=== PATIENT | female | born 1995 | race Caucasian/White ===

== ENCOUNTER → 2016-06-08 | Outpatient (CLI) | payer MEDICAID ==
[~2016-06-08] MED LIST: ACYC400T PO; CEPH500C PO; IBUP-232 PO; OXYC1TAB63 PO; PREN1PAK2 PO; SENN1TAB PO
== END ==
LOC: CLAB 14:42
DX: O36.0130 Maternal care for anti-D [Rh] antibodies, third trimester, not applicable or unspecified (principal)
CPT/HCPCS: 36415; 86850; 86900; 86901; 90384; 96372; J2790

== ENCOUNTER 2016-08-25 18:51 | Emergency (ER) | payer MEDICAID ==
[~2016-08-25 18:51] MED LIST changes: -CEPH500C PO; -IBUP-232 PO; -OXYC1TAB63 PO; -SENN1TAB PO
--- NOTE | 2016-08-25 20:59 | PD ---
HPI Chief Complaint contractions Date Seen: Aug 25, 2016 Time Seen: 20:45 Travel History International Travel<30 Days: No Contact w/Intl Traveler<30Days: No Known Affected Area: No History of Present Illness HPI Pt is a 20 y/o with IUP at 40w1d who presents for evaluation of contractions. Pt reports contractions since 3 pm, currently feeling every 3 minutes, 4-5/10 on pain scale. reports some mucous discharge earlier today but none presently. denies LOF. +FM Para: 1 : 2 History Past Medical History Narrative Medical HSV Obstetric History Obstetric History 2013 FTSVD Past Surgical History Surgical History: No Previous Surgery Family History Family History: Negative Social History Alcohol Use: No Tobacco Use: No Substance Abuse: No Allergies-Medications (Allergen,Severity, Reaction): Coded Allergies: No Known Allergies (Unverified , 08/23/16) Home Meds Active Scripts Acyclovir 400 Mg [id number] Mg PO BID #60 TAB Ref 6 Prov:Latanya Mejia 07/15/16 W/O Vit A W/ Fe Carbo Pack (Citranatal Dha Pack)27-1 & 250 Mg Pack1 Ea PO DAILY #60 BLISTER Ref 11 30 day supply. Prov:Latanya Mejia 05/12/16 Review of Systems General / Constitutional: No: Fever, Weight Gain, Weight Loss, Chills, Other Eyes: No: Diploplia, Blurred Vision, Visual changes, Pain, Photophobia, Other HENT: No: Headaches, Vertigo, Dental Difficulties, Lightheadedness, Other Cardiovascular: No: Irregular Rhythm, Chest Pain or Discomfort, Palpitations, Tachycardia, Syncope, Varicosities, Edema, Cyanosis, Other Respiratory: No: Cough, Short of Breath, Wheezing, Other Gastrointestinal: No: Nausea, Vomiting, Diarrhea, Abdominal Pain, Hematemesis, Hematochezia, Constipation, Changes in Bowel Habits, Indigestion, Loss of Appetite, Other Skin: No Rash, No Itching, No Dryness, No Lumps, No Change in Pigmentation, No Change in Nails, No Alopecia, No Lesions, No Breast Lumps, No Breast Tenderness , No Breast Swelling, No Other Neurologic: No: Weakness, Dizziness, Syncope, Focal Abnormalities, Coordination Problem, Headache, Slurred Speech, Seizures, Other Psychiatric: No: Anxiety, Depression, Suicidal Ideations, Disorder of Thought, Mood Disorder, Substance Abuse, Homicidal Ideation, Other Physical Exam Narrative GENERAL: Well-nourished, well-developed patient. SKIN: Warm and dry. HEAD: Normocephalic and atraumatic. EYES: No scleral icterus. No injection or drainage. ENT: No nasal drainage noted. Mucous membranes pink. Airway patent. NECK: Supple, trachea midline. No JVD. CARDIOVASCULAR: Regular rate and rhythm without murmurs, gallops, or rubs. RESPIRATORY: Breath sounds equal bilaterally. No accessory muscle use. ABDOMEN/GI: Abdomen soft, non-tender, bowel sounds present, no rebound, no guarding Gravid GENITOURINARY: External Genitalia: intact and normal in appearance BUS glands: wnl Cervix: 2/70/-2 per RN exam Presentation: [vtx] Membranes: intact Uterine Contractions: q 2-4 FHT's: Category: [1] Baseline: 135 Reactive: yes Variability: mod Decels: no EXTREMITIES: No cyanosis or edema. BACK: Nontender without obvious deformity. No CVA tenderness. NEUROLOGICAL: Awake and alert. Motor and sensory grossly within normal limits. Five out of 5 muscle strength in all muscle groups. Normal speech. Data Data Vital Signs Reviewed: Yes (113/67, 75, 16, 98.4) Orders Vital Signs (Adult) .ON ADMISSION (08/25/16 20:46) ^ Labor Status (08/25/16 20:46) MDM Medical Record Reviewed: Yes Narrative Course / MDM 20 y/o at 40.1 wks, latent versus false labor will have patient ambulate and recheck cervix GBS neg Rh neg Patient Instructions: General Instructions, Early Labor Signs (ED), Having Your Baby: The Labor Process (GEN) Additional Instructions: RETURN FOR CONTRACTIONS, LOSS OF FLUID (WATER BREAKING), VAGINAL BLEEDING, OR DECREASED MOVEMENT DRINK 8-10 LARGE GLASSES OF WATER EVERY DAY KEEP SCHEDULED APPOINTMENT WITH YOUR PROVIDER Departure Forms: Tests/Procedures Singh Alcantar MD Aug 25, 2016 20:59
== END 2016-08-25 22:11 | disposition home or self-care (01) ==
LOC: HOBED 19:30
DX: O47.1 False labor at or after 37 completed weeks of gestation (principal); Z3A.40 40 weeks gestation of pregnancy
CPT/HCPCS: 59025

== ENCOUNTER 2016-08-28 09:55 | Inpatient (IN) | payer MEDICAID ==
[2016-08-28] VITALS (24 sets, daily range): BP systolic 89–148; BP diastolic 51–80; PULSE 57–104; RESP 18; TEMP 97.8–98.7; O2SAT 96–100
[2016-08-28] MEDS ORDERED: LACTATED RINGER'S 1000 ML INJ 1,000 ML IV PRN (10:23)
[2016-08-28] MEDS ORDERED: LACTATED RINGER'S 1000 ML INJ 1,000 ML IV SCH (10:23)
--- NOTE | 2016-08-28 10:29 | PD ---
History of Present Illness Date Seen: Aug 28, 2016 History of Present Illness 20 y/o WF c/o CTXs , no bleeding or SROM , FHR reactive + CTXs cx--6/100/0/vtx RADHA, seen with [facility] Med resident , see his note for detail, agree with his assessment and plan Imp-- labor Plan -admit for delivery Darrick Neville II, MD Aug 28, 2016 10:29
[2016-08-28] MEDS ORDERED: LIDOCAINE HCL 1% 50 ML VIAL I-DERMAL PRN (10:30)
[2016-08-28] MEDS ORDERED: LIDOCAINE HCL 1% 50 ML VIAL INFIL PRN (10:30)
[2016-08-28] MEDS ORDERED: MINERAL OIL 10 ML VIAL TOPICAL PRN (10:30)
[2016-08-28] MEDS ORDERED: OXYTOCIN 30 UNITS-500ML PREMIX 500 ML IV ONE (10:30)
[2016-08-28] MEDS ORDERED: CITRIC ACID-SODIUM CITRATE LIQ 30 ML UDC PO SCH (10:30)
[2016-08-28] MEDS ORDERED: SODIUM CHLORID 0.9% 500 ML INJ 500 ML IV PRN (10:30)
--- NOTE | 2016-08-28 10:39 | HHI.HP ---
History & Physical H&P Patient Name: Aan Phelan Unit Number: [id number] Date of : 1995 Patient Status: Registered Emergency Room Attending Doctor: Latanya Delvalle MD HPI HPI Chief Complaint Contractions Date Seen: Aug 28, 2016 Travel History International Travel<30 Days: No Contact w/Intl Traveler<30Days: No History of Present Illness HPI Ms. Phelan is a 20 yo patient of [facility] at an estimated 40 weeks 4 /7 days who presents with contractions. Patient reports regular contractions every couple minutes beginning at approximately 4 AM; prior to this patient reports a couple days of less painful and more sporadic contractions. Patient currently rates pain with contractions at 7/10 in severity. Patient denies overt vaginal bleeding or loss of vaginal fluid. Patient reports bloody show last week. Patient reports history of HSV; she denies this being primary outbreak. Patient states she was placed on Valtrex at 36 weeks for prophylaxis. Patient denies any vaginal sores/lesions suggestive of herpes. GBS negative. Patient denies complications and reports reassuring prior ultrasound. Not report shortness of breath, chest pain, nausea/vomiting, dysuria, leg swelling/asymmetry, fever/chills, or other symptoms at this time. Para: 1 : 2 History (Limited) History Past Medical History Medical History: Denies Significant Hx Obstetric History Obstetric History no reported complications First delivery 2.5 years ago Past Surgical History Surgical History: No Previous Surgery Family History Family History: Negative Social History Alcohol Use: No Tobacco Use: No Substance Abuse: No Allergies-Medications Allergies-Medications (Allergen,Severity, Reaction): Coded Allergies: No Known Allergies (Unverified , 08/23/16) Home Meds Active Scripts Acyclovir 400 Mg [id number] Mg PO BID #60 TAB Ref 6 Prov:Latanya Mejia 07/15/16 W/O Vit A W/ Fe Carbo Pack (Citranatal Dha Pack)27-1 & 250 Mg Pack1 Ea PO DAILY #60 BLISTER Ref 11 30 day supply. Prov:Latanya Mejia 05/12/16 ROS Review of Systems General / Constitutional: No: Fever, Chills HENT: No: Headaches Cardiovascular: No: Chest Pain or Discomfort Respiratory: No: Cough, Short of Breath Gastrointestinal: No: Nausea, Vomiting Genitourinary: No: Urgency, Frequency Physical Exam Physical Exam BP 118/83 HR 100 RR 18 Temp 98.1 Narrative GENERAL: Well-nourished, well-developed patient. SKIN: Warm and dry. HEAD: Normocephalic and atraumatic. EYES: No scleral icterus. No injection or drainage. ENT: No nasal drainage noted. Mucous membranes pink. Airway patent. NECK: NO thyromegaly or lymphadenopathy CARDIOVASCULAR: Regular rate and rhythm without murmurs RESPIRATORY:Normal rate, CTAB ABDOMEN/GI: Abdomen soft, non-tender, bowel sounds present. Gravid EXTREMITIES: No cyanosis or edema. BACK: Nontender without obvious deformity. No CVA tenderness. NEUROLOGICAL: Awake and alert. Motor and sensory function grossly within normal limits. GENITOURINARY: External Genitalia: intact and normal in appearance. No visible lesions Cervix: Dilatation: 6 Effacement: 100% Station: 0 Presentation: V Membranes: Intact Uterine Contractions: Y FHT's: Category: 1 Baseline: 150 Reactive: Y Variability: Mod Decels: None Data Data Data Vital Signs Reviewed: Yes Orders Ob (2e) Additional Admit Info (08/28/16 10:23) MDM MDM Medical Record Reviewed: Yes Narrative Course / MDM Ms. Phelan is a 20 yo patient of [facility] at an estimated 40 weeks 4 /7 days who presents with contractions Assessment: -Category 1 rhythm -Cervix 6/100%/-1 -PMH HSV (not primary)- -No lesions, received prophylactic Valtrex x4 weeks -GBS- -Rh - Plan: -Will admit for labor -Cont EFM -Will check blood typing, CBC, UA -Will start IVF -Epidural per patient request - Vinny Wiley MD R2 Aug 28, 2016 10:39
[2016-08-28] MEDS ORDERED: SODIUM CHLOR 0.9% 1000 ML INJ 1,000 ML IV PRN (10:43)
[2016-08-28] MEDS ORDERED: fentaNYL 2MCG-BUPIV 0.125% INJ 100 ML ONE (10:47)
[2016-08-28 11:03] LABS: AUTOMATED NEUTROPHIL # 11.8 TH/MM3 (1.8-7.7); BASOPHIL % 0.3 % (0.0-2.0); EOSINOPHIL % 0.1 % (0.0-4.0); HEMATOCRIT 38.9 % (35.0-46.0); HEMO FLAGS DIFF FINAL; LYMPHOCYTE # 1.9 TH/MM3 (1.0-4.8); MEAN CELL VOLUME 92.3 FL (80.0-100.0); MEAN CORPUSCULAR HEMOGLOBIN 31.1 PG (27.0-34.0); MEAN CORPUSCULAR HGB CONC 33.7 % (32.0-36.0); MONO % 4.4 % (0.0-8.0); NEUT % 82.2 % (16.0-70.0); PLATELET COUNT 168 TH/MM3 (150-450); RED BLOOD COUNT 4.21 MIL/MM3 (4.00-5.30); RED CELL DISTRIBUTION WIDTH 13.2 % (11.6-17.2); WHITE BLOOD COUNT 14.4 TH/MM3 (4.0-11.0)
[2016-08-28] MEDS ORDERED: ePHEDrine/NS 25 MG/5 ML SYR IV PRN (12:15)
[2016-08-28] MEDS ORDERED: NO SYSTEM NARCOTICS PRN (12:15)
[2016-08-28] MEDS ORDERED: fentaNYL 2MCG-BUPIV 0.125% 100 ML EPIDURAL SCH (12:15)
[2016-08-28] MEDS ORDERED: DO NOT ADMINISTER ANTICOAGULANTS PRN (12:15)
--- NOTE | 2016-08-28 13:09 | PD.OB.DELI ---
Delivery Date: Aug 28, 2016 Anesthesia: Epidural Episiotomy: None Vaginal Delivery: Normal, Spontaneous Presentation: Occiput anterior Nuchal Cord: x1 Delayed cord clamping (45 sec): No (Nuchal could not be reduced) : Female One Minute : 9 Five Minute : 9 Weight: 3225 Infant Care: Suctioned, Responded to stimulation Placenta: Spontaneous delivery, Intact Laceration: 2 deg (perineal ) Repair: Chromic running Additional Information 2 chronic sutures used to repair 2nd degree perineal and L vaginal laceration; hemostasis achieved Dr. Neville as supervisor printing and stamping Vinny Haile MD R2 Aug 28, 2016 13:09
[2016-08-28] MEDS ORDERED: ALUMINUM/MAGNESIUM/SIMETH 30 ML CUP PO PRN (13:15)
[2016-08-28] MEDS ORDERED: WITCH HAZEL 50%/GLYCERIN 12.5% 40 PAD JAR TOPICAL PRN (13:15)
[2016-08-28] MEDS ORDERED: ONDANSETRON ODT 4 MG TAB PO PRN (13:15)
[2016-08-28] MEDS ORDERED: BENZOCAINE 20% TOPICAL SPRAY 60 ML CAN TOPICAL PRN (13:15)
[2016-08-28] MEDS ORDERED: ZOLPIDEM TARTRATE 5 MG TAB PO PRN (13:15)
[2016-08-28] MEDS ORDERED: oxyCODONE/ACETAMINOPHEN 5 MG/325 MG TAB PO PRN (13:15)
[2016-08-28] MEDS ORDERED: SODIUM CHLORIDE 0.9% FLUSH 10 ML FLUSH IV FLUSH PRN (13:15)
--- NOTE | 2016-08-28 13:31 | PD.LABORPN ---
Subjective Subjective OB Attending note Supervised by FM resident Vag delivery over 2 deg perineal lac, tight nuchal cord cut on perineum., uncomplicated delivery after that, infant wt 3225 gm 9 /9 , cord blood obtained, placenta out spont intact , lac repaired in layers with 2-0 chromic no complication Objective Vital Signs Vital Signs Date Time Temp Pulse Resp B/P Pulse Ox O2 Delivery O2 Flow Rate FiO2 08/28/16 13:00 18 08/28/16 12:45 86 112/66 08/28/16 12:32 98.6 18 08/28/16 12:31 85 107/59 08/28/16 12:15 71 148/74 100 08/28/16 12:15 104 08/28/16 12:10 72 98 08/28/16 12:05 57 96 08/28/16 12:01 60 123/56 08/28/16 12:00 65 08/28/16 12:00 99 08/28/16 11:55 99 08/28/16 11:55 67 08/28/16 11:50 74 08/28/16 11:50 100 08/28/16 11:46 90 123/74 08/28/16 11:45 86 08/28/16 11:45 100 08/28/16 11:40 78 08/28/16 11:40 81 100/56 08/28/16 11:35 88 114/66 08/28/16 11:35 63 08/28/16 11:30 98 08/28/16 11:30 94 117/80 08/28/16 11:25 91 123/79 08/28/16 10:58 18 08/28/16 10:54 78 128/76 Objective Darrick Neville II, MD Aug 28, 2016 13:30
[2016-08-28] MEDS: IBUPROFEN 600 MG TAB PO PRN ×2 (15:18→21:43)
[2016-08-28] MEDS ORDERED: DIPHTH/TETANUS/ACEL PERTUSSIS (BOOSTER) 0.5 ML VIAL/PFS IM ONE (16:00)
[2016-08-28] MEDS ORDERED: MEASLES, MUMPS, RUBELLA VACCINE 0.5 ML VIAL SQ ONE (16:00)
[2016-08-28] MEDS: DOCUSATE SODIUM 50 MG/SENNA 8.6 MG TAB PO PRN (19:24)
[2016-08-28] MEDS: ACETAMINOPHEN 325 MG TAB PO PRN ×2 (19:26→23:29)
[2016-08-28] MEDS ORDERED: SODIUM CHLORIDE 0.9% FLUSH 10 ML FLUSH IV FLUSH SCH (21:00)
[2016-08-29] MEDS: IBUPROFEN 600 MG TAB PO PRN ×3 (03:58→18:19)
[2016-08-29] MEDS: ACETAMINOPHEN 325 MG TAB PO PRN ×2 (04:00→08:38)
[2016-08-29 07:30] VITALS: BP 125/69; PULSE 78; RESP 18; TEMP 97.5
--- NOTE | 2016-08-29 07:43 | HHI.OB ---
Subjective Post Day: 1 Remarks Ms. Phelan is a 20 yo who is PPD 1 from at 40 weeks 4/7 days. Patient reports that she is doing well overall this time. Patient states she is breast-feeding her infant well. Patient has been able to ambulate somewhat in room. Patient reports mild/decreasing vaginal bleeding. Patient reports significant lower abdominal pain but that it is controlled with pain medications. Patient reports dysuria. Patient does not report shortness of breath, chest pain, leg swelling, or fever/chills. No bowel movement yet reported. Objective Vitals/I&O Vital Signs Date Time Temp Pulse Resp B/P Pulse Ox O2 Delivery O2 Flow Rate FiO2 08/28/16 19:40 98.7 73 18 08/28/16 19:40 128/69 08/28/16 14:45 109/64 08/28/16 14:45 97.8 75 18 08/28/16 13:45 62 106/60 08/28/16 13:30 73 89/51 08/28/16 13:15 68 18 111/64 08/28/16 13:00 78 107/59 08/28/16 13:00 18 08/28/16 12:45 86 112/66 08/28/16 12:32 98.6 18 08/28/16 12:31 85 107/59 08/28/16 12:15 71 148/74 100 08/28/16 12:15 104 08/28/16 12:10 72 98 08/28/16 12:05 57 96 08/28/16 12:01 60 123/56 08/28/16 12:00 65 08/28/16 12:00 99 08/28/16 11:55 99 08/28/16 11:55 67 08/28/16 11:50 74 08/28/16 11:50 100 08/28/16 11:46 90 123/74 08/28/16 11:45 86 08/28/16 11:45 100 08/28/16 11:40 78 08/28/16 11:40 81 100/56 08/28/16 11:35 88 114/66 08/28/16 11:35 63 08/28/16 11:30 98 08/28/16 11:30 94 117/80 08/28/16 11:25 91 123/79 08/28/16 10:58 18 08/28/16 10:54 78 128/76 Objective Remarks GENERAL: Well-nourished, well-developed patient. CARDIOVASCULAR: Regular rate and rhythm without murmurs, gallops, or rubs. RESPIRATORY: Breath sounds equal bilaterally. No accessory muscle use. ABDOMEN/GI: Abdomen soft, non-tender. Fundus: Firm, mildly tender at umbilicus. GENITOURINARY: Light to moderate bleeding. EXTREMITIES: No cyanosis or edema, non-tender, without signs of DVT. Medications and IVs Current Medications Medications (Trade) Dose Ordered Sig/Mattie Route Start Time Stop Time Status Last Admin Miscellaneous Information No systemic narcotics to be given except... UNSCH PRN .XX 08/28/16 12:15 08/29/16 12:14 Miscellaneous Information DO NOT ADMINISTER ANY ANTICOAGUL... UNSCH PRN .XX 08/28/16 12:15 08/29/16 12:14 (fentaNYL 2MCG-BUPIV 0.125% INJ) 100 ml @ 0 mls/hr TITRATE EPIDURAL 08/28/16 12:15 (ePHEDrine/NS 25 MG/5 ML SYR) 10 mg UNSCH PRN IV 08/28/16 12:15 08/29/16 12:14 (NS Flush) 2 ml BID IV FLUSH 08/28/16 21:00 (NS Flush) 2 ml UNSCH PRN IV FLUSH 08/28/16 13:15 (Tylenol) 650 mg Q4H PRN PO 08/28/16 13:15 08/29/16 04:00 (Motrin) 600 mg Q6H PRN PO 08/28/16 13:15 08/29/16 03:58 (Percocet 5-325 Mg) 1 tab Q4H PRN PO 08/28/16 13:15 (Percocet 5-325 Mg) 2 tab Q4H PRN PO 08/28/16 13:15 (Americaine 20% Top Spr) 1 spray Q4H PRN TOPICAL 08/28/16 13:15 08/28/16 19:24 (Tucks Pads) 1 applic QID PRN TOPICAL 08/28/16 13:15 08/28/16 19:24 (Heather-Colace) 2 tab Q12H PRN PO 08/28/16 13:15 08/28/16 19:24 (Ambien) 5 mg HS PRN PO 08/28/16 13:15 (Mag-Al Plus Susp Liq) 15 ml Q8H PRN PO 08/28/16 13:15 (Zofran Odt) 4 mg Q6H PRN PO 08/28/16 13:15 Assessment/Plan Assessment and Plan who is PPD 1 from at 40 weeks 4/7 days Continue Motrin/Percocet for pain control Continue to encourage ambulation Continue to encourage breast feeding Dysuriaunclear whether secondary to vaginal delivery versus infectious etiology; will check UA -Will plan to encourage pelvic rest x6wks and confirm f/u prior to D/C in ~1 day Vinny Haile MD R2 Aug 29, 2016 07:43
[2016-08-29] MEDS: DOCUSATE SODIUM 50 MG/SENNA 8.6 MG TAB PO PRN ×2 (08:39→21:29)
[2016-08-29 12:04] LABS: BACTERIA, URINE OCC /hpf; BLOOD, URINE LARGE (NEG); COMMENT (UR) CULTURE INDICATED; CULTURE IF INDICATED CULTURE INDICATED; GLUCOSE,URINE NEG (NEG); KETONE, URINE NEG (NEG); MUCUS URINE FEW /lpf (OCC); NITRITE,URINE NEG (NEG); SQUAMOUS EPITHELIAL CELL URINE 5 /hpf (0-5); URINE COLOR LIGHT-RED (YELLW/STRAW)
[2016-08-29] MEDS: oxyCODONE/ACETAMINOPHEN 5 MG/325 MG TAB PO PRN ×3 (14:17→22:45)
[2016-08-29 22:00] VITALS: BP 128/69; PULSE 76; RESP 18; TEMP 98
[2016-08-30] MEDS: IBUPROFEN 600 MG TAB PO PRN ×2 (01:43→09:42)
[2016-08-30] MEDS: oxyCODONE/ACETAMINOPHEN 5 MG/325 MG TAB PO PRN ×2 (03:56→09:41)
[2016-08-30 09:00] VITALS: BP 123/71; PULSE 89; RESP 16; TEMP 98.4
--- NOTE | 2016-08-30 09:24 | HHI.OB ---
Subjective Post Day: 2 Remarks Ms. Phelan is a 20 yo who is PPD 2 from at 40 weeks 4/7 days. Patient reports that she is doing well overall this time. Patient reports continued abdominal cramping and requests Motrin/Percocet on discharge. Patient does not report fever/chills, vaginal discharge, dysuria, or other complaints. Light/decreasing vaginal bleeding. Patient breast-feeding her infant well. Patient ambulating well. Patient does not report shortness of breath, chest pain, or leg swelling. Patient passing gas; no bowel movements. ( Vinny Haile MD R2) Objective Vitals/I&O Vital Signs Date Time Temp Pulse Resp B/P Pulse Ox O2 Delivery O2 Flow Rate FiO2 08/29/16 22:00 98.0 76 18 128/69 Objective Remarks GENERAL: Well-nourished, well-developed patient. CARDIOVASCULAR: Regular rate and rhythm without murmurs. RESPIRATORY: CTAB; normal rate ABDOMEN/GI: Abdomen soft, non-tender. Fundus: Firm, mildly tender at umbilicus. GENITOURINARY: Light to moderate bleeding. EXTREMITIES: No cyanosis or edema, non-tender, without signs of DVT. Medications and IVs Current Medications Medications (Trade) Dose Ordered Sig/Mattie Route Start Time Stop Time Status Last Admin (fentaNYL 2MCG-BUPIV 0.125% INJ) 100 ml @ 0 mls/hr TITRATE EPIDURAL 08/28/16 12:15 (NS Flush) 2 ml BID IV FLUSH 08/28/16 21:00 (NS Flush) 2 ml UNSCH PRN IV FLUSH 08/28/16 13:15 (Tylenol) 650 mg Q4H PRN PO 08/28/16 13:15 08/29/16 08:38 (Motrin) 600 mg Q6H PRN PO 08/28/16 13:15 08/30/16 01:43 (Percocet 5-325 Mg) 1 tab Q4H PRN PO 08/28/16 13:15 08/30/16 03:56 (Percocet 5-325 Mg) 2 tab Q4H PRN PO 08/28/16 13:15 (Americaine 20% Top Spr) 1 spray Q4H PRN TOPICAL 08/28/16 13:15 08/28/16 19:24 (Tucks Pads) 1 applic QID PRN TOPICAL 08/28/16 13:15 08/28/16 19:24 (Heather-Colace) 2 tab Q12H PRN PO 08/28/16 13:15 08/29/16 21:29 (Ambien) 5 mg HS PRN PO 08/28/16 13:15 (Mag-Al Plus Susp Liq) 15 ml Q8H PRN PO 08/28/16 13:15 (Zofran Odt) 4 mg Q6H PRN PO 08/28/16 13:15 (Vinny Haile MD R2) Assessment/Plan Problem List: (1) care and examination Assessment and Plan 20 yo who is PPD 2 from at 40 weeks 4/7 days Pain controlled with Motrin/Percocet Ambulating well well Continue to encourage breast feeding Dysuria patient states has resolved -UA obtained yesterday with large leuk esterase, large occult blood, 80 WBC, occasional bacteria; suggestive of contamination versus UTI. Culture pending -Will presumptively treat with Keflex -Encouraged pelvic rest x6wks and f/u with OBGYN in 6 weeks (Vinny Haile MD R2 ) Attending Attestation Agree with resident A/P. D/c home today. (Magy Cox MD) Vinny Haile MD R2 Aug 30, 2016 09:24 Magy Cox MD Aug 30, 2016 12:29
--- NOTE | 2016-08-30 09:26 | HHI.DCPOC ---
Discharge Care Plan Diagnosis: (1) care and examination Your Health Problems Are: Vaginal delivery Report Symptoms to Your Doctor -Temperate above 100.5 degrees -Redness, of incision or excessive or foul smelling drainage -Unusual pain or calf pain -Increased vaginal bleeding -Painful or difficulty urinating -Feelings of extreme sadness or anxiety after 2 weeks Goals to Promote Your Health * To prevent worsening of your condition and complications * To maintain your health at the optimal level Directions to Meet Your Goals Take your medications as prescribed Follow your dietary instruction Follow activity as directed Ensure plenty of rest for recovery Drink fluids for hydration Keep your appointments as scheduled Take your immunizations and boosters as scheduled If your symptoms worsen call your PCP, if no PCP go to Urgent Care Center or Emergency Room Smoking is Dangerous to Your Health. Avoid second hand smoke Call the 24-hour crisis hotline for domestic abuse at Vinny Haile MD R2 Aug 30, 2016 09:25
[2016-08-30] MEDS ORDERED: SENN1TAB PO (09:28)
[2016-08-30] MEDS ORDERED: OXYC1TAB63 PO (09:28)
[2016-08-30] MEDS ORDERED: IBUP-232 PO (09:28)
[2016-08-30] MEDS ORDERED: CEPH500C PO (10:17)
== END 2016-08-30 11:44 | disposition home or self-care (01) | DRG 775 ==
LOC: HOBED 09:55 → H2EB 10:23 → H1EA 14:23
PROVIDERS: ADMIT Obstetrics & Gynecology Maternal & Fetal Medicine; ATTEND Obstetrics & Gynecology Maternal & Fetal Medicine
PROC: 0KQM0ZZ Repair Perineum Muscle, Open Approach (ICD-10-PCS; principal; 2016-08-28)
PROC: 10E0XZZ Delivery of Products of Conception, External Approach (ICD-10-PCS; 2016-08-28)
PROC: 00HU33Z Insertion of Infusion Device into Spinal Canal, Percutaneous Approach (ICD-10-PCS; 2016-08-28)
PROC: 3E0R3CZ (ICD-10-PCS; 2016-08-28)
DX: O69.1XX0 Labor and delivery complicated by cord around neck, with compression, not applicable or unspecified (principal); O70.1 Second degree perineal laceration during delivery; Z37.0 Single live birth; Z3A.40 40 weeks gestation of pregnancy
CPT/HCPCS: 59025; 81001; 85025; 86900; 86901; 87086; 90715; 99285; J7120